=== PATIENT | male | born 1985 | race Hispanic/Latino ===

== ENCOUNTER 2018-12-30 19:30 | Outpatient (CLI) | payer BC | END 2018-12-30 19:31 | disposition home or self-care (01) | LOC: SLEEPLAB 19:30 | PROVIDERS: ATTEND Internal Medicine Critical Care Medicine | DX: G47.33 Obstructive sleep apnea (adult) (pediatric) (principal); R53.83 Other fatigue | CPT/HCPCS: 95811 ==

== ENCOUNTER 2019-10-23 07:40 | Outpatient (CLI) | payer BC ==
--- NOTE | 2019-10-23 14:50 | ULT ---
ABDOMINAL ULTRASOUND: HISTORY: Left sided abdomen pain. FINDINGS: Real-time imaging of the upper abdomen shows a normal appearing gallbladder. The technologist describ es a negative ultrasound Merrill sign. The common duct is 3 mm. The liver measures 18.8 cm in length, it is of increased echogenicity. There is some focal fatty sparing adjacent to the gallbladder. The s pleen measures 10.4 cm. The right and left kidneys are normal in size and not obstructed. The pancreas is obscured, as are po rtions of the abdominal aorta and IVC. IMPRESSION: Fatty change of the liver which is borderline in size. POS: H
== END 2019-10-23 07:41 | disposition home or self-care (01) ==
LOC: BICULT 07:40
PROVIDERS: ATTEND Family Medicine Sports Medicine
DX: R10.12 Left upper quadrant pain (principal); K76.0 Fatty (change of) liver, not elsewhere classified
CPT/HCPCS: 93975

== ENCOUNTER 2019-11-22 07:38 | Outpatient (CLI) | payer BC ==
--- NOTE | 2019-11-22 09:30 | CT ---
CT ABDOMEN AND PELVIS WITH IV CONTRAST: INDICATIONS: History of left lower quadrant abdominal pain and nonalcoholic steatohepatitis. The patient has had l eft lower quadrant abdominal pain for three to four months but has had normal bowel habits. COMPARISON: Abdominal ultrasound dated 10/23/2019. FINDINGS: As seen on the comparison abdominal ultrasound there is prominent fatty infiltration of the liver wit h areas of focal fatty sparing near the gallbladder fossa. The pancreas, adrenal glands and kidneys are normal appearing. The spleen is normal appearing. No boom e fluid or enlarged lymph nodes are evident. The colon and small bowel are normal appearing. The appendix is normal appearing. The bladder is part ially decompressed. The reproductive structures are normal appearing. The rectum and perirectal soft tissues are unremarkable appearing. No definite acute osseous abnormality is evident. IMPRESSION: 1. No CT explanation for the patient's left lower quadrant abdominal pain. 2. Prominent fatty infiltration of the liver with focal fatty sparing near the gallbladder fossa. POS: OFF
[2019-11-22] MEDS ORDERED: Iopamidol-370 76% 500 ML 1 ML ONE (15:33)
== END 2019-11-22 07:39 | disposition home or self-care (01) ==
LOC: BICCT 07:38
PROVIDERS: ATTEND Physician Assistant Medical
DX: K75.81 Nonalcoholic steatohepatitis (NASH) (principal); R94.5 Abnormal results of liver function studies; R10.32 Left lower quadrant pain; K76.0 Fatty (change of) liver, not elsewhere classified
CPT/HCPCS: 74177